=== PATIENT | male | born 1995 | race Two or more races ===

== ENCOUNTER 2017-01-31 02:33 | Emergency (ER) | payer OTHER ==
[~2017-01-31] VITALS: Ht 180.3 cm; Wt 68.0 kg
--- NOTE | 2017-01-31 02:36 | NUR ---
PT BB [employer] FOR EVAL OF LAC ON 3RD DIGIT OF LEFT HAND FROM [place]ASS @21:30. PT AOX4 RR EVEN AND UNLABORED. NO SOB NOTED. NAD NOTED. NO NVD AT THIS TIME. PT NOT DIAPHORETIC. PT PLACED ON MONITOR WAITING FOR MD CH[facility]MAN. [employer] AT BEDSIDE
--- NOTE | 2017-01-31 02:48 | NUR ---
DR. STERN AT BEDSIDE FOR EVAL.
[2017-01-31] MEDS ORDERED: TDAP [DIPH/PERTUSSIS/TET] 0.5 ML VIAL IM ONE ×2 (02:53→03:00)
--- NOTE | 2017-01-31 03:03 | NUR ---
XRAY AT BEDSIDE
[2017-01-31] MEDS ORDERED: LIDOCAINE HCL/PF 1% 30 ML SDV ONE (03:07)
--- NOTE | 2017-01-31 03:20 | NUR ---
DR. STERN AT BEDSIDE FOR LAC REPAIR
--- NOTE | 2017-01-31 03:58 | NUR ---
Patient discharged to home in stable condition. Written and verbal after care instructions given. Patient verbalizes understanding of instruction. ambulatory with a steady gait. pt in custody.
[2017-01-31 03:59] VITALS: BP 130/71
[2017-01-31] MEDS ORDERED: LIDOCAINE 1%-EPI 1:100,000 50 ML VIAL IJ ONE (04:00)
== END 2017-01-31 04:00 ==
LOC: ER 02:35
DX: S61.213A Laceration without foreign body of left middle finger without damage to nail, initial encounter (principal); W25.XXXA Contact with sharp glass, initial encounter; Y93.89 Activity, other specified; Y92.89 Other specified places as the place of occurrence of the external cause; Y99.8 Other external cause status
CPT/HCPCS: 12001; 73130; 90471; 90715; 99284; A4606; J3490 ×2; Z7610